=== PATIENT | female | born 1990 | race Caucasian/White ===

== ENCOUNTER → 2016-10-22 | Outpatient (CLI) | payer OTHER ==
--- NOTE | 2016-10-25 08:08 | SLEEPCENT ---
DATE OF PROCEDURE: 10/22/2016 ORDERED BY: Pallavi Lal Nocturnal polysomnography was performed for evaluation of sleep physiology in this patient with a history of excessive somnolence, snoring, nonrestorative sleep. 8 hours and 36 minutes of data were reviewed. There were 429 minutes of sleep identified. Sleep latency was mildly prolonged at 50 minutes. Rapid eye movement (REM) latency was normal at 54 minutes. Sleep architecture was good. There were 6 REM periods appreciated. Overall sleep efficiency was 85%. The patient's EKG showed a sinus rhythm with an average heart rate of 78 beats per minute. EEG showed normal waveforms for awake and sleep stages. There was only one respiratory event identified of 10 seconds in duration or greater. Snoring was noted. Respiratory related arousals occurred only 1.1 times per hour. There was minimal limb activity. No trains of events. Limb movement arousal index was 2.5. Oxygen saturations were 90% plus throughout the study. IMPRESSION: Normal nocturnal polysomnography with snoring. Copy To: Dr. Ravi Ortega
== END ==
LOC: M SLEEP 19:41
PROVIDERS: ATTEND Nurse Practitioner Adult Health
DX: G47.30 Sleep apnea, unspecified (principal)

== ENCOUNTER → 2017-09-09 | Outpatient (CLI) | payer OTHER ==
[2017-09-09 19:44] LABS: PROLACTIN 13.5 NG/ML
[2017-09-09 19:54] LABS: THYROID STIMULATING HORMONE 0.797 uIU/ML (0.358-3.740)
[2017-09-09 19:54] LABS: FREE T4 0.97 NG/DL (0.76-1.46)
== END ==
LOC: M WUC 15:54
DX: N92.6 Irregular menstruation, unspecified (principal)
CPT/HCPCS: 84146

== ENCOUNTER → 2017-11-28 | Outpatient (CLI) | payer OTHER ==
[2017-11-28 17:28] LABS: BASO % 0.3 % (0.0-1.0); EOS # 0.3 10^3/uL (0.0-0.50); EOS % 1.9 % (0.0-3.0); HEMATOCRIT 43.1 % (36.0-47.0); HEMOGLOBIN 14.1 g/dl (12.0-15.5); IMMATURE GRANULOCYTE # 0.1 10^3/uL (0-0); IMMATURE GRANULOCYTE % 0.6 % (0-3.0); LYMPH % 35.4 % (24.0-44.0); MEAN CORPUSCULAR HEMOGLOBIN 29.4 pg (27.0-33.0); MEAN CORPUSCULAR HGB CONC 32.7 g/dl (32.0-36.5); MEAN CORPUSCULAR VOLUME 89.8 fl (80.0-96.0); MONO # 0.8 10^3/uL (0.0-0.8); MONO % 6.1 % (0.0-5.0); NEUTROPHILS # 7.7 10^3/uL (1.8-7.7); NEUTROPHILS % 55.7 % (36.0-66.0); PLATELET COUNT, AUTOMATED 280 10^3/uL (150-450); RED CELL DISTRIBUTION WIDTH 13.3 % (11.5-14.5); WHITE BLOOD COUNT 13.9 10^3/uL (4.0-10.0)
[2017-11-28 17:30] LABS: LYMPH # 4.9 10^3/uL (1.5-6.5); POSITIVE DIFF POS FLAG
[2017-11-28 17:45] LABS: ESTIMATED AVERAGE GLUCOSE 117 MG/DL (60-110); HEMOGLOBIN A1c 5.7 %
[2017-11-28 17:46] LABS: ALBUMIN 3.6 GM/DL (3.2-5.2); ALBUMIN/GLOBULIN RATIO 0.95 (1.00-1.93); ALKALINE PHOSPHATASE 59 U/L (45-117); ALT/SGPT 32 U/L (12-78); ANION GAP 10 MEQ/L (8-16); AST/SGOT 22 U/L (7-37); BILIRUBIN,TOTAL 0.6 MG/DL (0.2-1.0); BLOOD UREA NITROGEN 18 MG/DL (7-18); CALCIUM LEVEL 8.8 MG/DL (8.5-10.1); CARBON DIOXIDE LEVEL 24 MEQ/L (21-32); CHLORIDE LEVEL 108 MEQ/L (98-107); CHOLESTEROL LEVEL 229 MG/DL (<200); CHOLESTEROL RISK RATIO 5.088 (<5); GLOMERULAR FILTRATION RATE > 60.0 (>60); GLUCOSE, FASTING 80 MG/DL (70-100); HDL CHOLESTEROL 45 MG/DL (>40); LDL CHOLESTEROL 122.8 MG/DL (<100); MAGNESIUM LEVEL 2.1 MG/DL (1.8-2.4); NON-HDL-C 184 MG/DL; POTASSIUM SERUM 4.5 MEQ/L (3.5-5.1); SODIUM LEVEL 142 MEQ/L (136-145); TOTAL PROTEIN 7.4 GM/DL (6.4-8.2); TRIGLYCERIDES LEVEL 306 MG/DL (<150)
[2017-11-29 09:56] LABS: TOTAL 25(OH) VITAMIN D 27.1 NG/ML (30.0-100.0)
[2017-11-29 09:57] LABS: TOTAL T3 168.8 NG/DL (60.0-181.0)
== END ==
LOC: M WUC 08:09
DX: D50.9 Iron deficiency anemia, unspecified (principal); Z79.899 Other long term (current) drug therapy; E55.9 Vitamin D deficiency, unspecified; E03.9 Hypothyroidism, unspecified; R79.9 Abnormal finding of blood chemistry, unspecified; E78.00 Pure hypercholesterolemia, unspecified

== ENCOUNTER → 2017-12-01 | Outpatient (REF) | payer OTHER ==
[2017-12-01 15:53] LABS: AMORPHOUS SEDIMENT LARGE (NEGATIVE); APPEARANCE, URINE TURBID (CLEAR); BACTERIA, URINE AUTO NEGATIVE (NEGATIVE); BILIRUBIN, URINE AUTO NEGATIVE (NEGATIVE); BLOOD, URINE BLOOD NEGATIVE (NEGATIVE); COLOR, URINE YELLOW (YELLOW); GLUCOSE, URINE (UA) AUTO NEGATIVE (NEGATIVE); KETONE, URINE AUTO NEGATIVE (NEGATIVE); LEUKOCYTE ESTERASE, URINE AUTO 3+ (NEGATIVE); MUCUS, URINE MODERATE (NEGATIVE); NITRITE, URINE AUTO NEGATIVE (NEGATIVE); PROTEIN, URINE AUTO NEGATIVE (NEGATIVE); RBC, URINE AUTO 0 /HPF (0-3); SQUAMOUS EPITHELIAL CELL UR AU 0 /HPF (0-6); UROBILINOGEN, URINE AUTO 0.2 mg/dL (0.0-2.0); WBC, URINE AUTO 4 /HPF (0-3)
== END ==
LOC: M LAB REF 15:28
DX: N39.0 Urinary tract infection, site not specified (principal)

== ENCOUNTER → 2018-02-26 | Outpatient (CLI) | payer OTHER ==
[2018-02-26 13:12] LABS: BASO # 0.1 10^3/uL (0.0-0.2); BASO % 0.5 % (0.0-1.0); EOS # 1.5 10^3/uL (0.0-0.50); EOS % 12.6 % (0.0-3.0); HEMATOCRIT 44.7 % (36.0-47.0); HEMOGLOBIN 14.6 g/dl (12.0-15.5); IMMATURE GRANULOCYTE % 0.3 % (0-3.0); LYMPH # 3.7 10^3/uL (1.5-6.5); LYMPH % 31.2 % (24.0-44.0); MEAN CORPUSCULAR HEMOGLOBIN 29.4 pg (27.0-33.0); MEAN CORPUSCULAR HGB CONC 32.7 g/dl (32.0-36.5); MEAN CORPUSCULAR VOLUME 89.9 fl (80.0-96.0); MONO # 0.7 10^3/uL (0.0-0.8); MONO % 5.5 % (0.0-5.0); NEUTROPHILS # 5.9 10^3/uL (1.8-7.7); NEUTROPHILS % 49.9 % (36.0-66.0); PLATELET COUNT, AUTOMATED 285 10^3/uL (150-450); RED BLOOD COUNT 4.97 10^6/uL (4.00-5.40); RED CELL DISTRIBUTION WIDTH 13.2 % (11.5-14.5); WHITE BLOOD COUNT 11.8 10^3/uL (4.0-10.0)
[2018-02-26 13:31] LABS: ALBUMIN 3.6 GM/DL (3.2-5.2); ALBUMIN/GLOBULIN RATIO 0.92 (1.00-1.93); ALKALINE PHOSPHATASE 72 U/L (45-117); ALT/SGPT 27 U/L (12-78); ANION GAP 9 MEQ/L (8-16); AST/SGOT 24 U/L (7-37); BILIRUBIN,TOTAL 0.5 MG/DL (0.2-1.0); BLOOD UREA NITROGEN 18 MG/DL (7-18); CALCIUM LEVEL 8.8 MG/DL (8.5-10.1); CARBON DIOXIDE LEVEL 27 MEQ/L (21-32); CHLORIDE LEVEL 105 MEQ/L (98-107); CHOLESTEROL LEVEL 196 MG/DL (<200); CHOLESTEROL RISK RATIO 4.355 (<5); CREATININE FOR GFR 0.76 MG/DL (0.55-1.30); FREE T4 0.97 NG/DL (0.76-1.46); GLOMERULAR FILTRATION RATE > 60.0 (>60); GLUCOSE, FASTING 79 MG/DL (70-100); HDL CHOLESTEROL 45 MG/DL (>40); LDL CHOLESTEROL 112 MG/DL (<100); MAGNESIUM LEVEL 2.1 MG/DL (1.8-2.4); NON-HDL-C 151 MG/DL; POTASSIUM SERUM 4.4 MEQ/L (3.5-5.1); SODIUM LEVEL 141 MEQ/L (136-145); THYROID STIMULATING HORMONE 0.838 uIU/ML (0.358-3.740); TOTAL PROTEIN 7.5 GM/DL (6.4-8.2); TRIGLYCERIDES LEVEL 197 MG/DL (<150)
[2018-02-26 14:21] LABS: ESTIMATED AVERAGE GLUCOSE 111 MG/DL (60-110); HEMOGLOBIN A1c 5.5 %
[2018-02-28 10:16] LABS: TOTAL 25(OH) VITAMIN D 30.3 NG/ML (30.0-100.0)
[2018-02-28 10:17] LABS: TOTAL T3 173.7 NG/DL (60.0-181.0)
== END ==
LOC: M WUC 09:14
DX: Z51.81 Encounter for therapeutic drug level monitoring (principal); Z79.899 Other long term (current) drug therapy; D50.9 Iron deficiency anemia, unspecified; E55.9 Vitamin D deficiency, unspecified; E03.9 Hypothyroidism, unspecified; R79.9 Abnormal finding of blood chemistry, unspecified; E78.00 Pure hypercholesterolemia, unspecified
CPT/HCPCS: 83735

== ENCOUNTER → 2018-11-05 | Outpatient (CLI) | payer OTHER ==
--- NOTE | 2018-11-07 11:39 | REP ---
MRI RIGHT HIP: TECHNIQUE: Coronal T1, STIR through the pelvis, T2 fat sat, right hip all three planes, axial oblique proton density fat sat right hip. Visualized osseous structures demonstrate normal bone marrow signal. There is no bone marrow edema or occult fracture. There is no evidence of avascular necrosis. I do not see evidence of a labral tear. There is no paralabral cyst. There is normal amount of joint fluid. Surrounding soft tissue structures demonstrate no signal abnormality. Visualized intrapelvic structures appear unremarkable. The uterus is deviated to the right inferiorly and to the left superiorly. The ovaries are grossly unremarkable. Trace free fluid is likely physiologic. IMPRESSION: Essentially negative MRI right hip. Electronically Signed by Lawson Chaudhry MD 11/07/2018 01:13 P
== END ==
LOC: M RAD 11:57
PROVIDERS: ATTEND Family Medicine
DX: M25.551 Pain in right hip (principal); M24.651 Ankylosis, right hip

== ENCOUNTER → 2019-08-03 | Outpatient (REF) | payer OTHER ==
[2019-08-03 17:25] LABS: HEMATOCRIT 40.2 % (36.0-47.0); HEMOGLOBIN 13.5 g/dl (12.0-15.5); MEAN CORPUSCULAR HEMOGLOBIN 30.3 pg (27.0-33.0); MEAN CORPUSCULAR HGB CONC 33.6 g/dl (32.0-36.5); MEAN CORPUSCULAR VOLUME 90.1 fl (80.0-96.0); PLATELET COUNT, AUTOMATED 311 10^3/uL (150-450); RED BLOOD COUNT 4.46 10^6/uL (4.00-5.40); WHITE BLOOD COUNT 13.1 10^3/uL (4.0-10.0)
[2019-08-04 07:37] LABS: HCG, SERUM QUANTITATIVE 49678 MIU/ML
[2019-08-04 08:32] LABS: RUBELLA IgG QUALITATIVE IMMUNE (IMMUNE)
[2019-08-04 09:01] LABS: HIV 1&2 SCREEN CENTAUR NEGATIVE (NEGATIVE)
== END ==
LOC: M LAB REF 16:44
PROVIDERS: ATTEND Obstetrics & Gynecology
DX: Z32.01 Encounter for pregnancy test, result positive (principal); Z3A.00 Weeks of gestation of pregnancy not specified

== ENCOUNTER → 2019-12-03 | Outpatient (REF) | payer OTHER ==
[~2019-12-03] MED LIST: CALC1TAB26 PO; IBUP80TA PO; METF-877 PO; MULTTAB20 PO; PERCOCET PO; VITA-243 PO
[2019-12-30 22:47] LABS: HEMATOCRIT 36.5 % (36.0-47.0); HEMOGLOBIN 11.7 g/dl (12.0-15.5); MEAN CORPUSCULAR HEMOGLOBIN 30.9 pg (27.0-33.0); MEAN CORPUSCULAR HGB CONC 32.1 g/dl (32.0-36.5); MEAN CORPUSCULAR VOLUME 96.3 fl (80.0-96.0); PLATELET COUNT, AUTOMATED 212 10^3/uL (150-450); RED BLOOD COUNT 3.79 10^6/uL (4.00-5.40); WHITE BLOOD COUNT 13.8 10^3/uL (4.0-10.0)
== END ==
LOC: M WUC 11:13
PROVIDERS: ATTEND Obstetrics & Gynecology
DX: Z34.02 Encounter for supervision of normal first pregnancy, second trimester (principal)

== ENCOUNTER → 2020-02-23 | Outpatient (CLI) | payer OTHER | LOC: M LABSMTC 12:18 | PROVIDERS: ATTEND Anesthesiology | DX: Z01.812 Encounter for preprocedural laboratory examination (principal); Z20.828 Contact with and (suspected) exposure to other viral communicable diseases | CPT/HCPCS: C9803; U0003 ==

== ENCOUNTER 2020-02-28 05:05 | Inpatient (IN) | payer OTHER ==
[~2020-02-28] VITALS: Ht 154.9 cm; Wt 78.7 kg
[2020-02-28] VITALS (8 sets, daily range): BP systolic 110–137; BP diastolic 58–95
[~2020-02-28 05:05] MED LIST changes: -IBUP80TA PO; -PERCOCET PO
[2020-02-28] MEDS ORDERED: LR 1,000 ML IV SCH (05:23)
[2020-02-28] MEDS ORDERED: LACTATED RINGER'S 1000 ML IV STA (05:23)
[2020-02-28] MEDS ORDERED: ceFAZolin SOD 2 GM in IV 1 EA IV ONE (05:30)
[2020-02-28] MEDS ORDERED: BICITRA 30ML SOLN UDC PO ONE (05:30)
[2020-02-28 06:02] LABS: HEMATOCRIT 42.1 % (36.0-47.0); HEMOGLOBIN 13.7 g/dl (12.0-15.5); MEAN CORPUSCULAR HGB CONC 32.5 g/dl (32.0-36.5); MEAN CORPUSCULAR VOLUME 92.3 fl (80.0-96.0); PLATELET COUNT, AUTOMATED 215 10^3/uL (150-450); RED BLOOD COUNT 4.56 10^6/uL (4.00-5.40); WHITE BLOOD COUNT 13.2 10^3/uL (4.0-10.0)
[2020-02-28] MEDS ORDERED: MORPHINE PRES-FREE INJ 10 MG/10 ML VIAL (J2274) As Ordered ONE (07:18)
[2020-02-28] MEDS ORDERED: OXYTOCIN 30 UNITS IN 0.9% NaCl 500ML IV BAG (J2590) As Ordered ONE (07:21)
[2020-02-28] MEDS ORDERED: NALOXONE INJ 0.4MG/1ML VIAL (J2310 PER 1MG) IV PRN ×2 (07:40)
[2020-02-28] MEDS ORDERED: ONDANSETRON 4MG/2ML VIAL IV PRN ×2 (07:40→09:00)
[2020-02-28] MEDS ORDERED: METOCLOPRAMIDE INJ 10MG/2ML VIAL (J2765 PER 1) IV PRN (07:40)
[2020-02-28] MEDS ORDERED: diphenhydrAMINE 50MG/ML VIAL (J1200) IV PRN ×2 (07:40→09:00)
[2020-02-28] MEDS ORDERED: PHENYLephrine HCL 500 MCG/5 ML (100MCG/ML) SYRINGE (J2370) As Ordered ONE (08:05)
[2020-02-28] MEDS ORDERED: OXYTOCIN DRIP 30 UNITS in IV 1 EA IV SCH (08:23)
[2020-02-28] MEDS ORDERED: PERCOCET 5MG/325MG TAB PO PRN (08:30)
[2020-02-28] MEDS ORDERED: RHOGAM 300 MCG (1500 IU) INJ (J2790) IM SCH (08:30)
[2020-02-28] MEDS ORDERED: MEASLES,MUMPS,RUBELLA VACCINE INJ (MMR-II) (90707) SC SCH (08:30)
[2020-02-28 08:35] LABS: CORD GAS ABE A -1.1; CORD GAS ABE V -2.7; CORD GAS HCO3 A 27.2 MEQ/L; CORD GAS HCO3 V 22.5 MEQ/L; CORD GAS O2 SAT V 87.5 %; CORD GAS PCO2 A 60.2 mmHg; CORD GAS PCO2 V 40.8 mmHg; CORD GAS PH A 7.273 UNITS; CORD GAS PH V 7.36 UNITS; CORD GAS PO2 A 23.1 mmHg; CORD GAS PO2 V 43.1 mmHg; CORD GAS SBC A 22.3 MEQ/L; CORD GAS TCO2 A 29.1 MEQ/L; CORD GAS TCO2 V 23.8 MEQ/L
[2020-02-28] MEDS: PRENATAL VITAMINS CHEWABLE TABLET PO SCH (09:00)
[2020-02-28] MEDS ORDERED: oxyCODONE 5MG TAB PO PRN (09:00)
[2020-02-28] MEDS ORDERED: MEPERIDINE INJ 25 MG/ML VIAL (J2175) IV PRN (09:00)
[2020-02-28] MEDS ORDERED: fentaNYL 100 MCG/2 ML INJECTION (J3010) IV PRN (09:00)
[2020-02-28] MEDS ORDERED: KETOROLAC 30 MG/ML 1ML VIAL As Ordered ONE (09:20)
[2020-02-28] MEDS: KETOROLAC 30 MG/ML 1ML VIAL IV SCH ×3 (09:21→21:19)
--- NOTE | 2020-02-28 17:18 | RO ---
DATE OF OPERATION: 02/28/2020 Ingrid is a 29-year-old female who was found to be at term with breech presentation. After extensive counseling in the office a decision was made to proceed with a primary section. PREOPERATIVE DIAGNOSES: 1. Term with breech presentation. 2. Desires primary section. 3. Type 2 diabetes. POSTOPERATIVE DIAGNOSES: 1. Term with breech presentation. 2. Desires primary section. 3. Type 2 diabetes. PROCEDURE: Primary low transverse section. ANESTHESIA: Spinal. SURGEON: Dr. Miller MANAGER AVIATION: yLssa Stein COMPLICATIONS: None. ESTIMATED BLOOD LOSS: 500 mL. FINDINGS: Live male infant in mulugeta breech position. scores 9 and 9. weight 7 pounds 11 ounces. Normal-appearing tubes and ovaries. DESCRIPTION OF PROCEDURE: After obtaining informed consent, patient was taken to the operating room, where spinal anesthetic was found to be adequate. She was then draped and prepped in the usual sterile fashion in the supine position with the help of Lyssa Stein. A Pfannenstiel incision was made. This was carried down to the fascia. Fascia was incised in midline fashion and carried through laterally. The superior aspect of the fascia was then grasped with the Martin clamp, tented off, and dissected off the rectus muscle sharply. The inferior aspect was dissected off in a similar fashion. Rectus muscles in midline fashion. Peritoneum identified. Peritoneal cavity entered bluntly. Superior and inferior dissection of the peritoneum was then done with good visualization of the bladder. At this point, a Mobius skin retraction was placed. A low transverse uterine incision was made. Infant was delivered in atraumatic fashion. Was then mouth bulb suctioned. Cord doubly clamped and cut, and infant was handed over to the awaiting warmer. Cord blood and cord gas were sent. Placenta removed manually. Uterus cleared of all clots and debris, and the uterine incision was then repaired in two separate layers of 0 Vicryl sutures. All superficial bleeders coagulated, and the skin was then reapproximated in a subcuticular fashion using 3-0 Vicryl on a Sincere. Steri-Strips placed. Patient tolerated the procedure well. She was then transferred to recovery room in stable condition. SHIRLEY
[2020-02-29 02:00] VITALS: BP 115/76
[2020-02-29] MEDS: KETOROLAC 30 MG/ML 1ML VIAL IV SCH (02:56)
[2020-02-29 06:00] VITALS: BP 121/80
[2020-02-29 07:55] LABS: HEMATOCRIT 37.3 % (36.0-47.0); MEAN CORPUSCULAR HEMOGLOBIN 30.2 pg (27.0-33.0); MEAN CORPUSCULAR HGB CONC 32.2 g/dl (32.0-36.5); MEAN CORPUSCULAR VOLUME 93.7 fl (80.0-96.0); PLATELET COUNT, AUTOMATED 184 10^3/uL (150-450); RED BLOOD COUNT 3.98 10^6/uL (4.00-5.40); WHITE BLOOD COUNT 12.6 10^3/uL (4.0-10.0)
[2020-02-29] MEDS ORDERED: BOOSTRIX/ADACEL VACCINE (DIPHTH/PERTUSS/ACELL/TETANUS) 0.5ML SYR IM ONE (09:00)
[2020-02-29] MEDS: PRENATAL VITAMINS CHEWABLE TABLET PO SCH (09:29)
[2020-02-29 09:44] VITALS: BP 132/86
[2020-02-29] MEDS: IBUPROFEN 800 MG TAB PO SCH ×2 (10:26→18:49)
[2020-02-29 14:00] VITALS: BP 146/84
[2020-02-29 17:52] VITALS: BP 115/69
[2020-02-29 22:00] VITALS: BP 132/89
[2020-03-01 02:00] VITALS: BP 126/72
[2020-03-01] MEDS: IBUPROFEN 800 MG TAB PO SCH ×2 (03:15→11:00)
[2020-03-01 06:00] VITALS: BP 126/89
[2020-03-01] MEDS: PRENATAL VITAMINS CHEWABLE TABLET PO SCH (07:46)
[2020-03-01] MEDS ORDERED: PERCOCET PO (12:15)
[2020-03-01] MEDS ORDERED: IBUP80TA PO (12:15)
== END 2020-03-01 14:38 | disposition home or self-care (01) | DRG 786 ==
LOC: M LDI 05:05 → M OBS 10:18
PROVIDERS: ADMIT Obstetrics & Gynecology; ATTEND Obstetrics & Gynecology
PROC: 10D00Z1 Extraction of Products of Conception, Low, Open Approach (ICD-10-PCS; principal; 2020-02-28 07:30)
DX: O32.1XX0 Maternal care for breech presentation, not applicable or unspecified (principal); O24.32 Unspecified pre-existing diabetes mellitus in childbirth; Z37.0 Single live birth; Z3A.38 38 weeks gestation of pregnancy; E11.9 Type 2 diabetes mellitus without complications; Z88.0 Allergy status to penicillin; Z91.013 Allergy to seafood; Z91.010 Allergy to peanuts

== ENCOUNTER → 2020-04-15 | Outpatient (CLI) | payer OTHER ==
[~2020-04-15] MED LIST changes: +IBUP80TA PO; +PERCOCET PO
== END ==
LOC: M LAB 07:06
PROVIDERS: ATTEND Obstetrics & Gynecology
DX: O48.0 Post-term pregnancy (principal); Z3A.00 Weeks of gestation of pregnancy not specified

== ENCOUNTER → 2021-06-19 | Outpatient (REF) | payer OTHER ==
[2021-06-19 16:52] LABS: HEMATOCRIT 43.1 % (36.0-47.0); HEMOGLOBIN 14.7 g/dl (12.0-15.5); MEAN CORPUSCULAR HEMOGLOBIN 30.4 pg (27.0-33.0); MEAN CORPUSCULAR HGB CONC 34.1 g/dl (32.0-36.5); PLATELET COUNT, AUTOMATED 235 10^3/uL (150-450); RED BLOOD COUNT 4.84 10^6/uL (4.00-5.40); WHITE BLOOD COUNT 11.1 10^3/uL (4.0-10.0)
[2021-06-19 17:37] LABS: HCG, SERUM QUANTITATIVE 45553 MIU/ML; HEPATITIS B SURFACE ANTIGEN NEGATIVE (NEGATIVE)
[2021-06-19 18:01] LABS: HIV 1&2 SCREEN CENTAUR NEGATIVE (NEGATIVE)
== END ==
LOC: M LAB REF 16:15
PROVIDERS: ATTEND Obstetrics & Gynecology
DX: Z32.01 Encounter for pregnancy test, result positive (principal)

== ENCOUNTER → 2021-09-02 | Outpatient (CLI) | payer OTHER | LOC: M LAB 15:20 | PROVIDERS: ATTEND Obstetrics & Gynecology | DX: O24.912 Unspecified diabetes mellitus in pregnancy, second trimester (principal) ==

== ENCOUNTER → 2021-11-18 | Outpatient (CLI) | payer OTHER ==
[2021-11-18 15:45] LABS: BASO % 0.3 % (0.0-1.0); EOS # 0.1 10^3/uL (0.0-0.5); EOS % 0.8 % (0.0-3.0); HEMATOCRIT 37.5 % (36.0-47.0); HEMOGLOBIN 12.4 g/dl (12.0-15.5); LYMPH # 2.5 10^3/uL (1.5-5.0); LYMPH % 18.1 % (24.0-44.0); MEAN CORPUSCULAR HEMOGLOBIN 31.2 pg (27.0-33.0); MEAN CORPUSCULAR HGB CONC 33.1 g/dl (32.0-36.5); MEAN CORPUSCULAR VOLUME 94.5 fl (80.0-96.0); MONO # 0.7 10^3/uL (0.0-0.8); MONO % 4.8 % (2.0-8.0); NEUTROPHILS # 10.3 10^3/uL (1.5-8.5); NEUTROPHILS % 74.4 % (36.0-66.0); PLATELET COUNT, AUTOMATED 211 10^3/uL (150-450); RED BLOOD COUNT 3.97 10^6/uL (4.00-5.40); WHITE BLOOD COUNT 13.9 10^3/uL (4.0-10.0)
== END ==
LOC: M LAB 13:28
PROVIDERS: ATTEND Obstetrics & Gynecology
DX: O99.891 Other specified diseases and conditions complicating pregnancy (principal); R30.0 Dysuria; Z3A.00 Weeks of gestation of pregnancy not specified

== ENCOUNTER → 2022-01-13 | Outpatient (REF) | payer OTHER | LOC: M LAB REF 16:31 | PROVIDERS: ATTEND Obstetrics & Gynecology | DX: Z34.83 Encounter for supervision of other normal pregnancy, third trimester (principal) ==

== ENCOUNTER → 2022-02-01 | Outpatient (CLI) | payer OTHER | LOC: M LABSMTC 10:37 | PROVIDERS: ATTEND Anesthesiology | DX: Z01.812 Encounter for preprocedural laboratory examination (principal); Z20.822 Contact with and (suspected) exposure to COVID-19 ==

== ENCOUNTER 2022-02-04 05:10 | Inpatient (IN) | payer OTHER ==
[~2022-02-04] VITALS: Ht 154.9 cm; Wt 81.4 kg
[2022-02-04] VITALS (10 sets, daily range): BP systolic 115–132; BP diastolic 68–97
[2022-02-04] MEDS ORDERED: LACTATED RINGER'S 1000 ML IV STA (05:24)
[2022-02-04] MEDS ORDERED: BICITRA 30ML SOLN UDC PO ONE (05:25)
[2022-02-04] MEDS ORDERED: ceFAZolin SOD 2 GM in IV 1 EA IV ONE (05:25)
[2022-02-04] MEDS ORDERED: LR 1,000 ML IV ONE (05:25)
[2022-02-04] MEDS ORDERED: BICITRA 30ML SOLN UDC PO SCH (05:25)
[2022-02-04] MEDS ORDERED: LR 1,000 ML IV SCH ×2 (05:25→08:15)
[2022-02-04 06:12] LABS: HEMATOCRIT 42.9 % (36.0-47.0); HEMOGLOBIN 14.4 g/dl (12.0-15.5); MEAN CORPUSCULAR HEMOGLOBIN 30.8 pg (27.0-33.0); MEAN CORPUSCULAR HGB CONC 33.6 g/dl (32.0-36.5); MEAN CORPUSCULAR VOLUME 91.9 fl (80.0-96.0); PLATELET COUNT, AUTOMATED 199 10^3/uL (150-450); RED BLOOD COUNT 4.67 10^6/uL (4.00-5.40); WHITE BLOOD COUNT 14.1 10^3/uL (4.0-10.0)
[2022-02-04] MEDS ORDERED: MORPHINE PRES-FREE INJ 10 MG/10 ML VIAL As Ordered ONE (07:19)
[2022-02-04] MEDS ORDERED: OXYTOCIN 30 UNITS IN 0.9% NaCl 500ML IV BAG (J2590) As Ordered ONE ×2 (07:21→08:45)
[2022-02-04] MEDS ORDERED: ONDANSETRON 4MG 2ML VIAL As Ordered ONE (07:23)
[2022-02-04] MEDS ORDERED: dexameTHASONE 4 MG/ML 1ML VIAL (J1100 PER 1MG) As Ordered ONE (07:23)
[2022-02-04] MEDS ORDERED: ePHEDrine SULFATE 25 MG/5 ML(5MG/ML) SYRINGE As Ordered ONE (08:04)
[2022-02-04] MEDS ORDERED: MEPERIDINE INJ 25 MG/ML VIAL (J2175) IV PRN (08:15)
[2022-02-04] MEDS ORDERED: fentaNYL 100 MCG/2 ML INJECTION IV PRN (08:15)
[2022-02-04] MEDS ORDERED: ONDANSETRON 4MG 2ML VIAL IV PRN (08:15)
[2022-02-04] MEDS ORDERED: METOCLOPRAMIDE INJ 10MG/2ML VIAL (J2765 PER 1) IV PRN (08:15)
[2022-02-04] MEDS ORDERED: oxyCODONE 5MG TAB PO PRN (08:15)
[2022-02-04] MEDS ORDERED: KETOROLAC 60MG 2ML VIAL As Ordered ONE (08:19)
[2022-02-04 08:22] LABS: CORD GAS ABE A 0.5; CORD GAS HCO3 A 26.6 MEQ/L; CORD GAS O2 SAT A 37.9 %; CORD GAS PCO2 A 48.1 mmHg; CORD GAS PH A 7.361 UNITS; CORD GAS PO2 A 16.8 mmHg; CORD GAS SBC A 23.3 MEQ/L; CORD GAS TCO2 A 28.1 MEQ/L
[2022-02-04 08:22] LABS: CORD GAS ABE V -1.8; CORD GAS HCO3 V 22.5 MEQ/L; CORD GAS O2 SAT V 76.1 %; CORD GAS PCO2 V 37.3 mmHg; CORD GAS PH V 7.398 UNITS; CORD GAS PO2 V 30.7 mmHg; CORD GAS SBC V 22.4 MEQ/L; CORD GAS TCO2 V 23.6 MEQ/L
[2022-02-04] MEDS ORDERED: PHENYLephrine 500MCG 5ML (100MCG/ML) SYRINGE As Ordered ONE (08:22)
[2022-02-04] MEDS ORDERED: MOM 30ML SUSPENSION UDC PO PRN (08:35)
[2022-02-04] MEDS ORDERED: RHOGAM 300 MCG (1500 IU) INJ (J2790) IM SCH (08:35)
[2022-02-04] MEDS ORDERED: OXYTOCIN DRIP 30 UNITS in IV 1 EA IV SCH (08:35)
[2022-02-04] MEDS ORDERED: PERCOCET 5MG/325MG TAB PO PRN (08:35)
[2022-02-04] MEDS: PRENATAL VITAMINS CHEWABLE TABLET PO SCH (11:05)
[2022-02-04] MEDS: DOCUSATE SODIUM 100MG CAPSULE PO SCH ×2 (11:05→20:25)
[2022-02-04] MEDS: KETOROLAC 30 MG/ML 1ML VIAL IV SCH ×2 (14:42→20:24)
[2022-02-05 02:00] VITALS: BP 111/56
[2022-02-05] MEDS: KETOROLAC 30 MG/ML 1ML VIAL IV SCH (02:25)
[2022-02-05 06:00] VITALS: BP 104/55
[2022-02-05 07:36] LABS: HEMATOCRIT 38.9 % (36.0-47.0); HEMOGLOBIN 12.6 g/dl (12.0-15.5); MEAN CORPUSCULAR HEMOGLOBIN 30.7 pg (27.0-33.0); MEAN CORPUSCULAR HGB CONC 32.4 g/dl (32.0-36.5); MEAN CORPUSCULAR VOLUME 94.9 fl (80.0-96.0); PLATELET COUNT, AUTOMATED 165 10^3/uL (150-450); WHITE BLOOD COUNT 12.6 10^3/uL (4.0-10.0)
[2022-02-05 08:03] LABS: BLOOD UREA NITROGEN 9 MG/DL (7-18); CALCIUM LEVEL 8.5 MG/DL (8.5-10.1); CARBON DIOXIDE LEVEL 24 MEQ/L (21-32); CHLORIDE LEVEL 109 MEQ/L (98-107); CREATININE FOR GFR 0.66 MG/DL (0.55-1.30); GLOMERULAR FILTRATION RATE > 60.0 (>60); GLUCOSE, FASTING 80 MG/DL (70-100); POTASSIUM SERUM 4.1 MEQ/L (3.5-5.1); SODIUM LEVEL 138 MEQ/L (136-145)
[2022-02-05] MEDS: PRENATAL VITAMINS CHEWABLE TABLET PO SCH (09:23)
[2022-02-05] MEDS: DOCUSATE SODIUM 100MG CAPSULE PO SCH ×2 (09:23→21:26)
[2022-02-05] MEDS: IBUPROFEN 800 MG TAB PO SCH ×2 (09:24→17:01)
[2022-02-05 09:53] VITALS: BP 119/74
[2022-02-05 14:03] VITALS: BP 114/65
[2022-02-05] MEDS: SIMETHICONE 80MG CHEW TAB PO PRN (17:00)
[2022-02-05 19:00] VITALS: BP 133/79
[2022-02-05 22:00] VITALS: BP 139/84
[2022-02-06] MEDS: IBUPROFEN 800 MG TAB PO SCH ×2 (01:58→10:37)
[2022-02-06 02:00] VITALS: BP 121/78
[2022-02-06 06:00] VITALS: BP 115/69
[2022-02-06] MEDS: SIMETHICONE 80MG CHEW TAB PO PRN (08:00)
[2022-02-06] MEDS: DOCUSATE SODIUM 100MG CAPSULE PO SCH (08:00)
[2022-02-06] MEDS: PRENATAL VITAMINS CHEWABLE TABLET PO SCH (08:00)
[2022-02-06] MEDS ORDERED: MEASLES,MUMPS,RUBELLA VACCINE INJ (MMR-II) (90707) SC.IMMUN ONE (09:00)
[2022-02-06] MEDS ORDERED: COLA100C5 PO (12:05)
[2022-02-06] MEDS ORDERED: IBUP80TA PO (12:05)
== END 2022-02-06 12:56 | disposition home or self-care (01) | DRG 540 ==
LOC: M LDI 05:10 → M OBS 10:22
PROVIDERS: ADMIT Obstetrics & Gynecology; ATTEND Obstetrics & Gynecology
PROC: 10D00Z1 Extraction of Products of Conception, Low, Open Approach (ICD-10-PCS; principal; 2022-02-04 07:30)
DX: O34.211 Maternal care for low transverse scar from previous cesarean delivery (principal); Z37.0 Single live birth; O24.415 Gestational diabetes mellitus in pregnancy, controlled by oral hypoglycemic drugs; Z79.84 Long term (current) use of oral hypoglycemic drugs; Z3A.39 39 weeks gestation of pregnancy

== ENCOUNTER → 2022-08-13 | Outpatient (REF) | payer OTHER ==
[~2022-08-13] MED LIST changes: +COLA100C5 PO
== END ==
LOC: M PLALAB 09:29
PROVIDERS: ATTEND Advanced Practice Midwife
DX: Z12.4 Encounter for screening for malignant neoplasm of cervix (principal)
CPT/HCPCS: 87624; G0123

== ENCOUNTER 2022-10-05 07:45 | Emergency (ER) | payer OTHER ==
[~2022-10-05] VITALS: Ht 154.9 cm; Wt 74.2 kg
[2022-10-05] MEDS ORDERED: COLA100C5 PO (07:57)
[2022-10-05] MEDS ORDERED: KETOROLAC 30 MG/ML 1ML VIAL IM ONE (09:25)
[2022-10-05 10:27] VITALS: BP 113/73; TEMP 98.5; O2SAT 98
== END 2022-10-05 10:40 | disposition home or self-care (01) ==
LOC: M ED 07:45
DX: S46.212A Strain of muscle, fascia and tendon of other parts of biceps, left arm, initial encounter (principal); X50.0XXA Overexertion from strenuous movement or load, initial encounter; Y92.009 Unspecified place in unspecified non-institutional (private) residence as the place of occurrence of the external cause; Y93.89 Activity, other specified; Z88.0 Allergy status to penicillin; Z91.010 Allergy to peanuts; Z91.013 Allergy to seafood; Z91.89 Other specified personal risk factors, not elsewhere classified
CPT/HCPCS: 73060; 96372; 99284; J1885

== ENCOUNTER → 2023-01-06 | Outpatient (CLI) | payer OTHER ==
[2023-01-06 18:15] LABS: CALCIUM LEVEL 9.4 MG/DL (8.5-10.1); PHOSPHORUS LEVEL 2.9 MG/DL (2.5-4.9)
[2023-01-06 18:29] LABS: PTH INTACT 26.8 PG/ML (18.5-88.0)
== END ==
LOC: M PLALAB 15:27
PROVIDERS: ATTEND Family Medicine
DX: R79.9 Abnormal finding of blood chemistry, unspecified (principal)

== ENCOUNTER → 2023-08-18 | Outpatient (REF) | payer OTHER | LOC: M PLALAB 08:40 | PROVIDERS: ATTEND Advanced Practice Midwife | DX: Z12.4 Encounter for screening for malignant neoplasm of cervix (principal) | CPT/HCPCS: 87624; G0123 ==

== ENCOUNTER → 2024-09-13 | Outpatient (REF) | payer OTHER ==
[2024-09-15 14:22] LABS: HPV APTIMA Not Detected (Not Detected)
== END ==
LOC: M PLALAB 11:32
PROVIDERS: ATTEND Advanced Practice Midwife
DX: Z12.4 Encounter for screening for malignant neoplasm of cervix (principal)
CPT/HCPCS: 87624; G0123